=== PATIENT | female | born 1980 | race Caucasian/White ===

== ENCOUNTER 2019-05-14 21:11 | Emergency (ER) | END 2019-05-15 01:30 | disposition left against medical advice (07) | LOC: EDBD → ER 21:11 | DX: Z53.21 Procedure and treatment not carried out due to patient leaving prior to being seen by health care provider (principal) ==

== ENCOUNTER 2019-07-10 20:47 | Emergency (ER) | payer MEDICAID ==
[2019-07-10 21:17] VITALS: BP 91/58
[2019-07-10] MEDS ORDERED: ACETAMINOPHEN 325 MG TABLET PO ONE (21:57)
--- NOTE | 2019-07-10 22:00 | ER Document Report ---
ED Medical Screen (RME) - General Chief Complaint: Near Syncope Stated Complaint: POSSIBLE SYNCOPE Time Seen by Provider: 07/10/19 21:51 Notes: She is a 39-year-old female who presents the emergency department after syncopal episode. Patient went to go to make dinner and she felt dizzy and fell to the ground. She has complaints of neck pain. She felt like maybe her sugar was low, but EMS checked her blood sugar and it was 136. She also received half a liter of fluids. Patient also states that she had cold-like symptoms last week. Last menstrual cycle was about 2 weeks ago. Exam: Point tenderness to spinous processes of neck. TRAVEL OUTSIDE OF THE [place] IN LAST 30 DAYS: No Past Medical History - Social History Chew tobacco use (# tins/day): No Frequency of alcohol use: None Physical Exam - Vital signs Vitals: Temp Pulse Resp BP Pulse Ox 97.7 F 60 12 91/58 L 99 07/10/19 21:15 07/10/19 21:15 07/10/19 21:15 07/10/19 21:15 07/10/19 21:15 Course - Vital Signs Vital signs: Temp Pulse Resp BP Pulse Ox 97.7 F 60 12 91/58 L 99 07/10/19 21:15 07/10/19 21:15 07/10/19 21:15 07/10/19 21:15 07/10/19 21:15
[2019-07-10] MEDS ORDERED: MECLIZINE HCL 12.5 MG TABLET PO ONE (22:19)
--- NOTE | 2019-07-11 22:04 | EKG REPORT ---
SEVERITY:- ABNORMAL ECG - SINUS RHYTHM LEFT ATRIAL ABNORMALITY : Confirmed by: Renato Ried MD 11-Jul-2019 22:03:55
== END 2019-07-10 22:55 | disposition left against medical advice (07) ==
LOC: ER 20:47
DX: R55 Syncope and collapse (principal); M54.2 Cervicalgia; Z53.20 Procedure and treatment not carried out because of patient's decision for unspecified reasons
CPT/HCPCS: 93005; 93010; 99281

== ENCOUNTER 2019-07-11 19:42 | Emergency (ER) | payer MEDICAID ==
[2019-07-11] MEDS ORDERED: ASPIRIN 81 MG TABLET, CHEWABLE PO ONE (20:22)
--- NOTE | 2019-07-11 20:24 | ER Document Report ---
ED Medical Screen (RME) - General Chief Complaint: Chest Pain Stated Complaint: CHEST PAIN,NUMBNESS Time Seen by Provider: 07/11/19 20:18 Primary Care Provider: MICHELLE GOMEZ MD [Primary Care Provider] - Follow up as needed Mode of Arrival: Wheelchair Information source: Patient Notes: This 39-year-old female with history of occipital neuralgia, brain tumor pr esents emergency department with complaints of right-sided chest pain that started yesterday. She reports she feels short of breath. She reports she fell and hit her head and possibly passed out yesterday. She was evaluated in this emergency department yesterday also. Denies history of cardiac disease. Patient is very tearful. EKG shows sinus rhythm. She reports this happened to her last month. She reports having to her at least 5 times got last couple years. She reports she takes synthetic morphine for her occipital neuralgia but she has not taken any of that yesterday or today. I have greeted and performed a rapid initial assessment of this patient. A comprehensive ED assessment and evaluation of the patient, analysis of test results and completion of the medical decision making process will be conducted by additional ED providers. Dictation of this chart was performed using voice recognition software; therefore, there may be some unintended grammatical errors. TRAVEL OUTSIDE OF THE [place] IN LAST 30 DAYS: No Physical Exam - Vital signs Vitals: Temp Pulse Resp BP Pulse Ox 97.6 F 74 20 101/66 99 07/11/19 20:03 07/11/19 20:03 07/11/19 20:03 07/11/19 20:03 07/11/19 20:03 Course - Vital Signs Vital signs: Temp Pulse Resp BP Pulse Ox 97.6 F 74 20 101/66 99 07/11/19 20:03 07/11/19 20:03 07/11/19 20:03 07/11/19 20:03 07/11/19 20:03 Doctor's Discharge - Discharge Referrals: MICHELLE GOMEZ MD [Primary Care Provider] - Follow up as needed
[2019-07-11 20:55] LABS: ABSOLUTE BASOPHILS # (AUTO) 0.1 10^3/uL (0.0-0.2); ABSOLUTE EOSINOPHILS # (AUTO) 0.1 10^3/uL (0.0-0.6); ABSOLUTE LYMPHOCYTES (AUTO) 3.7 10^3/uL (0.5-4.7); ABSOLUTE MONOCYTES (AUTO) 0.4 10^3/uL (0.1-1.4); ABSOLUTE NEUT (AUTO) 5.9 10^3/uL (1.7-8.2); BASOPHILS % (AUTO) 0.8 % (0-2); EOSINOPHILS % (AUTO) 0.8 % (0-6); HEMATOCRIT 43.1 % (36.0-47.0); HEMOGLOBIN 15.1 g/dL (12.0-15.5); LYMPHOCYTES % (AUTO) 36.2 % (13-45); MEAN CORPUSCULAR HEMOGLOBIN 31.5 pg (27.0-33.4); MEAN CORPUSCULAR VOLUME 90 fl (80-97); MONOCYTES % (AUTO) 3.9 % (3-13); PLATELET COUNT 210 10^3/uL (150-450); RED BLOOD COUNT 4.78 10^6/uL (3.72-5.28); RED CELL DISTRIBUTION WIDTH 13.1 % (11.5-14.0); SEGMENTED NEUTROPHILS % (AUTO) 58.3 % (42-78); TOTAL CELLS COUNTED % (AUTO) 100 %; WHITE BLOOD COUNT 10.1 10^3/uL (4.0-10.5)
--- NOTE | 2019-07-11 21:07 | RADIOLOGY REPORT (SQ) ---
XR CHEST 2 VIEWS EXAM DATE: 07/11/2019 8:22 PM CDT HISTORY: Chest Pain. COMPARISON: None. FINDINGS: The heart size is within normal limits. No consolidation, pleural effusion, or pneumothorax is seen. No acute bony findings. IMPRESSION: No evidence of acute cardiopulmonary disease.
[2019-07-11 21:14] LABS: ALBUMIN 3.3 g/dL (3.5-5.0); ALKALINE PHOSPHATASE 58 U/L (38-126); ASPARTATE AMINO TRANSFERASE 25 U/L (14-36); BILIRUBIN,TOTAL 0.6 mg/dL (0.2-1.3); BLOOD UREA NITROGEN 11 mg/dL (7-20); CALCIUM 9.2 mg/dL (8.4-10.2); CARBON DIOXIDE 24 mmol/L (22-30); CREATINE KINASE 47 U/L (30-135); GLUCOSE 104 mg/dL (75-110); POTASSIUM 3.5 mmol/L (3.6-5.0); TOTAL PROTEIN 5.6 g/dL (6.3-8.2)
[2019-07-11 21:20] LABS: ANION GAP 5 (5-19); CHLORIDE 106 mmol/L (98-107)
[2019-07-11 21:25] LABS: APPEARANCE,URINE SLIGHTLY-CLOUDY; BILIRUBIN,URINE NEGATIVE (NEGATIVE); COLOR,URINE YELLOW; GLUCOSE, URINE NEGATIVE (NEGATIVE); KETONES,URINE NEGATIVE (NEGATIVE); LEUKOCYTE ESTERASE,URINE NEGATIVE (NEGATIVE); NITRITE,URINE NEGATIVE (NEGATIVE); PROTEIN,URINE NEGATIVE (NEGATIVE); URINE SPECIFIC GRAVITY 1.013
[2019-07-11 21:26] LABS: TROPONIN I < 0.012 ng/mL
[2019-07-11 21:39] LABS: URINE AMPHETAMINES SCREEN NEGATIVE; URINE BARBITURATES SCREEN NEGATIVE; URINE BENZODIAZEPINES SCREEN NEGATIVE; URINE COCAINE SCREEN NEGATIVE; URINE MARIJUANA (THC) SCREEN UNCONFIRMED POSITIVE; URINE METHADONE SCREEN NEGATIVE; URINE PHENCYCLIDINE SCREEN NEGATIVE
[2019-07-12] MEDS ORDERED: FENTANYL CITRATE INJ/PF 100 MCG/2 ML AMPUL IV ONE (00:06)
[2019-07-12] MEDS ORDERED: NORMAL SALINE 1000 ML 1,000 ML IV ONE (00:07)
[2019-07-12] MEDS ORDERED: ONDANSETRON HCL INJ/PF 4 MG/2 ML SDV IV ONE (00:07)
--- NOTE | 2019-07-12 00:14 | ER Document Report ---
ED General - General Chief Complaint: Chest Pain Stated Complaint: CHEST PAIN,NUMBNESS Time Seen by Provider: 07/11/19 20:18 Primary Care Provider: MICHELLE GOMEZ MD [Primary Care Provider] - Follow up as needed Mode of Arrival: Wheelchair Notes: Patient is a 39-year-old female that comes to the emergency department for chief complaint of right-sided chest pain, headache, swelling at the back of her head, neck pain, and 2 episodes of vomiting. She states that she either passed out an d hit her head last night where she fell and hit her head and subsequently passed out. She is unsure. This happened in the bathroom yesterday, she came by EMS but then left because she reportedly had a family emergency. She states symptoms have not improved or resolved. She denies difficulty breathing, fever, focal numbness or weakness. Past medical history includes occipital neuralgia, pituitary adenoma treated with bromocriptine and subsequently cleared by MRI, and she was on chronic pain medication with oral morphine up until 2 weeks ago. She denies recreational drugs, smoking, she does drink alcohol occasionally but not in the past 48 hours reportedly. TRAVEL OUTSIDE OF THE [place] IN LAST 30 DAYS: No - Related Data Allergies/Adverse Reactions: amoxicillin [From Augmentin] Allergy (Verified 07/11/19 20:25) cefixime [From Suprax] Allergy (Verified 07/11/19 20:25) clavulanic acid [From Augmentin] Allergy (Verified 07/11/19 20:25) meperidine [From Demerol] Allergy (Verified 07/11/19 20:25) metoclopramide [From Reglan] Allergy (Verified 07/11/19 20:25) Past Medical History - General Information source: Patient - Social History Smoking Status: Current Every Day Smoker Frequency of alcohol use: None Drug Abuse: None Lives with: Family Family History: Reviewed & Not Pertinent Patient has suicidal ideation: No Patient has homicidal ideation: No Neurological Medical History: Reports: Hx Migraine Review of Systems - Review of Systems Constitutional: No symptoms reported EENT: No symptoms reported Cardiovascular: See HPI Respiratory: No symptoms reported Gastrointestinal: No symptoms reported Genitourinary: No symptoms reported Female Genitourinary: No symptoms reported Musculoskeletal: See HPI Skin: No symptoms reported Hematologic/Lymphatic: No symptoms reported Neurological/Psychological: See HPI Physical Exam - Vital signs Vitals: Temp Pulse Resp BP Pulse Ox 97.6 F 74 20 101/66 99 07/11/19 20:03 07/11/19 20:03 07/11/19 20:03 07/11/19 20:03 07/11/19 20:03 - Notes Notes: GENERAL: Alert, interacts well. Covering her eyes and loudly talking HEAD: Normocephalic, small questionable hematoma over the posterior occipital area. No open wounds. EYES: Pupils equal, round, and reactive to light. Extraocular movements intact. ENT: Oral mucosa moist, tongue midline. Oropharynx unremarkable. Airway patent. Nares patent, no nasal septal hematoma, TM's intact. NECK: Full range of motion. Supple. Trachea midline. LUNGS: Clear to auscultation bilaterally, no wheezes, rales, or rhonchi. No respiratory distress. Tender generally over the right side of the chest without signs of trauma, no hematoma or erythema. HEART: Regular rate and rhythm. No murmur ABDOMEN: Soft, non-tender. Non-distended. Bowel sounds present in all 4 quadrants. GENITOURINARY: Deferred EXTREMITIES: Moves all 4 extremities spontaneously. No edema, normal radial and dorsalis pedis pulses bilaterally. No cyanosis. BACK: no cervical, thoracic, lumbar midline tenderness. No saddle anesthesia, normal distal neurovascular exam. Moves all extremities in full range of motion. NEUROLOGICAL: Alert and oriented x3. Normal speech. Cranial nerves II through XII grossly intact. PSYCH: Irritable SKIN: Warm, dry, normal turgor. No rashes or lesions noted. Course - Re-evaluation Re-evalutation: Patient has right-sided chest wall tenderness on exam. Patient is covering her eyes and telling me she has a headache, she had does have what appears to be a small lump on the back of her head. Because of her reported head injury and vomiting CAT scan of the head will be performed along with CAT scan of the neck because of reported neck pain with the injury. She has no focal deficits on exam. She did not appear to be in distress. Vital signs show mildly low blood pressure but are otherwise unremarkable. Patient was given pain medication. CT of the head and neck unremarkable. CBC, chemistry, troponin unremarkable, negative test. Urine drug screen positive for marijuana. On reevaluation patient is asking for more pain medication. I discussed the results. Patient became extremely frustrated, she states that she has been to "tons of neurology appointments" and "nobody can figure out what is going on", she states that somebody needs to tell her what is going on. I explained that because of her reported syncopal episode I recommended cardiology follow-up and I will give her referral, patient became angry, states she is leaving, states that she has nothing else that she wants from here. I did offer a dose of pain medication but patient declined stating that she already has her oral morphine. Patient was able to take off all of her monitoring and dress rapidly without any difficulty. - Vital Signs Vital signs: Temp Pulse Resp BP Pulse Ox 97.6 F 74 18 95/66 L 100 07/11/19 20:03 07/11/19 20:03 07/12/19 02:01 07/12/19 02:00 07/12/19 02:01 - Laboratory Result Diagrams: 07/11/19 20:40 07/11/19 20:40 Laboratory results interpreted by me: 07/11/19 07/11/19 20:40 21:00 Sodium 134.5 L Potassium 3.5 L Total Protein 5.6 L Albumin 3.3 L Urine Blood SMALL H Urine Urobilinogen 2.0 H Discharge - Discharge Clinical Impression: Right-sided chest pain, Neck pain Head injury Qualifiers: Encounter type: initial encounter Qualified Code(s): S09.90XA - Unspecified injury of head, initial encounter Condition: Stable Disposition: HOME, SELF-CARE Additional Instructions: The imaging of your head and neck along with your chest do not show any injuries or concerning findings. Your work-up does not show any specific concerning abnormality at this time. I recommend cardiology follow-up because of your sy ncopal episode, see referral. Follow-up with your neurologist as well because of your headaches. Return for any concerning symptoms including passing out again, vomiting, fever, or any other concerning symptoms. Referrals: MICHELLE GOMEZ MD [Primary Care Provider] - Follow up as needed
--- NOTE | 2019-07-12 01:30 | RADIOLOGY REPORT (SQ) ---
EXAM DESCRIPTION: CT CERVICAL SPINE WITHOUT IV CONTRAST COMPLETED DATE/TME: 07/12/2019 00:07 CLINICAL HISTORY: 39 years, Female, head injury, neck pain COMPARISON: None. TECHNIQUE: Axial CT images of the cervical spine were obtained without contrast. Sagittal and coronal reformats were performed. DLP 413 Images stored on PACS. All CT scanners at this facility use dose modulation, iterative reconstruction, and/or weight based dosing when appropriate to reduce radiation dose to as low as reasonably achievable (ALARA). [facility]: Dose Right [facility]: CareDose [facility]: Dose Right [facility]: Teradose 4D [facility]: [employer] LIMITATIONS: None. FINDINGS: The alignment of the cervical spine is satisfactory. There is no acute fracture or subluxation. The vertebral heights are maintained. The odontoid process is intact. The craniocervical junction is intact. The prevertebral soft tissues are normal. There is disc space narrowing with anterior osteophytes noted at C4-C5. No significant spinal canal stenosis or neural foraminal narrowing at any level. The visualized lung apices are clear. IMPRESSION: No acute fracture or subluxation involving the cervical spine. TECHNICAL DOCUMENTATION: Quality ID # 436: Final reports with documentation of one or more dose reduction techniques (e.g., Automated exposure control, adjustment of the mA and/or kV according to patient size, use of iterative reconstruction technique) copyright 2011 [employer]- All Rights Reserved
--- NOTE | 2019-07-12 01:31 | RADIOLOGY REPORT (SQ) ---
EXAM DESCRIPTION: CT HEAD WITHOUT IV CONTRAST COMPLETED DATE/TME: 07/12/2019 00:07 CLINICAL HISTORY: 39 years, Female, head injury, vomiting COMPARISON: None. TECHNIQUE: Axial CT images of the ring were obtained without contrast. Sagittal and coronal reformats were performed. ON LICENSE OF [facility] 1017 Images stored on PACS. All CT scanners at this facility use dose modulation, iterative reconstruction, and/or weight based dosing when appropriate to reduce radiation dose to as low as reasonably achievable (ALARA). [facility]: Dose Right [facility]: CareDose [facility]: Dose Right [facility]: Teradose 4D [facility]: [employer] LIMITATIONS: None. FINDINGS: There is no acute cortical infarct, hemorrhage, mass, edema, hydrocephalus, or extra-axial fluid collection. The villarreal-white matter differentiation is preserved. There is mucosal thickening of the maxillary sinuses. The mastoid air cells are clear. No acute fracture is identified. IMPRESSION: No acute intracranial abnormality. TECHNICAL DOCUMENTATION: Quality ID # 436: Final reports with documentation of one or more dose reduction techniques (e.g., Automated exposure control, adjustment of the mA and/or kV according to patient size, use of iterative reconstruction technique) copyright 2010 [employer]- All Rights Reserved
[2019-07-12 02:14] VITALS: BP 95/66
[2019-07-12] MEDS ORDERED: OXYCODONE-ACETAMINOPHEN 5-325 MG TABLET PO ONE (02:29)
== END 2019-07-12 03:07 | disposition home or self-care (01) ==
LOC: ER 19:42
DX: R07.9 Chest pain, unspecified (principal); S09.90XA Unspecified injury of head, initial encounter; R51 Headache; M54.2 Cervicalgia; X58.XXXA Exposure to other specified factors, initial encounter; R11.10 Vomiting, unspecified; I95.9 Hypotension, unspecified; R55 Syncope and collapse; F17.200 Nicotine dependence, unspecified, uncomplicated; Z88.0 Allergy status to penicillin; Z88.5 Allergy status to narcotic agent; Z88.8 Allergy status to other drugs, medicaments and biological substances; Z88.1 Allergy status to other antibiotic agents
CPT/HCPCS: 99285; 96361; 96374; 96375; 36415; 82553; 82550; 85025; 81025; 80053; 81001; 84484; 80307; 71046; 70450; 72125; J3010; J2405; J7030

== ENCOUNTER 2020-06-27 18:13 | Emergency (ER) | payer MEDICAID ==
--- NOTE | 2020-06-27 18:56 | ER Document Report ---
ED Medical Screen (RME) - General Chief Complaint: Chest Pain Stated Complaint: CHEST PAIN Time Seen by Provider: 06/27/20 18:46 Primary Care Provider: MICHELLE GOMEZ MD [Primary Care Provider] - Follow up as needed TRAVEL OUTSIDE OF THE [place] IN LAST 30 DAYS: No - HPI Notes: 06/27/20 18:55 40-year-old female to the emergency department with complaints of midsternal and left-sided chest pain that radiates through to her back that began this morning and has persisted. She admits to associated shortness of breath and increased pain with big deep breath. She states that she feels extremely fatigued, "like I just ran a marathon". She states that she has had nausea but no vomiting. She admits to some slight diaphoresis. She states also that her right index finger has been swollen and painful for over 1 month. 1 month ago she got bit by her son's dog when breaking up a dog fight with her dog. She states she had 3 puncture wounds and she was never seen for them. She states that she never was on antibiotics. Denies any fevers or chills. Denies any cough, abdominal pain. I performed a brief medical screening exam on the patient determined that the patient needs further evaluation and management by main side provider. I have placed initial orders to help expedite care. - Related Data Allergies/Adverse Reactions: amoxicillin trihydrate [From Augmentin] Allergy (Severe, Verified 08/02/19 13:32) Hives meperidine HCl [From Demerol] Allergy (Severe, Verified 08/02/19 13:32) Hallucinations Potassium Clavulanate * [From Augmentin] Allergy (Severe, Verified 08/02/19 13:32) Hives amoxicillin [From Augmentin] Allergy (Verified 08/02/19 13:32) cefixime [From Suprax] Allergy (Verified 08/02/19 13:32) clavulanic acid [From Augmentin] Allergy (Verified 08/02/19 13:32) meperidine [From Demerol] Allergy (Verified 08/02/19 13:32) metoclopramide [From Reglan] Allergy (Verified 08/02/19 13:32) Past Medical History - Past Medical History Cardiac Medical History: Denies: Hx Coronary Artery Disease, Hx Heart Attack, Hx Hypertension Pulmonary Medical History: Reports: Hx Asthma - inhalers Denies: Hx Bronchitis, Hx COPD, Hx Pneumonia Neurological Medical History: Reports: Hx Migraine. Denies: Hx Cerebrovascular Accident, Hx Seizures Renal/ Medical History: Reports: Hx Ovarian Cysts - PCO S. Denies: Hx Peritoneal Dialysis GI Medical History: Reports: Hx Hiatal Hernia Musculoskeltal Medical History: Reports Hx Arthritis, Reports Hx Fibromyalgia Past Surgical History: Reports: Hx Breast Surgery, Hx Cholecystectomy, Hx Genitourinary Surgery - d&c, Hx Orthopedic Surgery, Hx Pituitary Surgery - Immunizations Hx Diphtheria, Pertussis, Tetanus Vaccination: Yes Physical Exam - Vital signs Vitals: Temp Pulse Resp BP Pulse Ox 97.9 F 61 18 106/70 98 06/27/20 18:26 06/27/20 18:26 06/27/20 18:26 06/27/20 18:26 06/27/20 18:26 Course - Vital Signs Vital signs: Temp Pulse Resp BP Pulse Ox 97.9 F 61 18 106/70 98 06/27/20 18:26 06/27/20 18:26 06/27/20 18:26 06/27/20 18:26 06/27/20 18:26 Doctor's Discharge - Discharge Referrals: MICHELLE GOMEZ MD [Primary Care Provider] - Follow up as needed
[2020-06-27 19:25] LABS: ABSOLUTE BASOPHILS # (AUTO) 0.1 10^3/uL (0.0-0.2); ABSOLUTE EOSINOPHILS # (AUTO) 0.2 10^3/uL (0.0-0.6); ABSOLUTE LYMPHOCYTES (AUTO) 3.8 10^3/uL (0.5-4.7); ABSOLUTE MONOCYTES (AUTO) 0.4 10^3/uL (0.1-1.4); BASOPHILS % (AUTO) 0.8 % (0-2); EOSINOPHILS % (AUTO) 1.6 % (0-6); HEMATOCRIT 40.8 % (36.0-47.0); HEMOGLOBIN 14.2 g/dL (12.0-15.5); LYMPHOCYTES % (AUTO) 36.2 % (13-45); MEAN CORPUSCULAR HEMOGLOBIN 32.7 pg (27.0-33.4); MEAN CORPUSCULAR HGB CONC 34.8 g/dL (32.0-36.0); MEAN CORPUSCULAR VOLUME 94 fl (80-97); MONOCYTES % (AUTO) 3.7 % (3-13); PLATELET COUNT 209 10^3/uL (150-450); RED BLOOD COUNT 4.34 10^6/uL (3.72-5.28); RED CELL DISTRIBUTION WIDTH 13.7 % (11.5-14.0); SEGMENTED NEUTROPHILS % (AUTO) 57.7 % (42-78); TOTAL CELLS COUNTED % (AUTO) 100 %; WHITE BLOOD COUNT 10.5 10^3/uL (4.0-10.5)
[2020-06-27 19:36] LABS: ALBUMIN 3.4 g/dL (3.5-5.0); ALKALINE PHOSPHATASE 73 U/L (38-126); ANION GAP 6 (5-19); ASPARTATE AMINO TRANSFERASE 26 U/L (14-36); BILIRUBIN,DIRECT 0.3 mg/dL (0.0-0.4); BILIRUBIN,TOTAL 0.5 mg/dL (0.2-1.3); BLOOD UREA NITROGEN 13 mg/dL (7-20); CARBON DIOXIDE 26 mmol/L (22-30); CHLORIDE 106 mmol/L (98-107); GLUCOSE 97 mg/dL (75-110); POTASSIUM 4.4 mmol/L (3.6-5.0); TOTAL PROTEIN 5.8 g/dL (6.3-8.2)
--- NOTE | 2020-06-27 19:38 | RADIOLOGY REPORT (SQ) ---
EXAM DESCRIPTION: HAND RIGHT 3 VIEWS IMAGES COMPLETED DATE/TIME: 06/27/2020 7:18 pm REASON FOR STUDY: dog bite, finger pain and swelling one month ago COMPARISON: 11/29/2016 EXAM PARAMETERS: NUMBER OF VIEWS: Three views. TECHNIQUE: AP, lateral and oblique radiographic images acquired of the right hand. LIMITATIONS: None. FINDINGS: MINERALIZATION: Normal. BONES: No acute fracture or dislocation. Postprocedural changes noted in the 1st metacarpal and prox imal phalanx right thumb. . JOINTS: No effusion. SOFT TISSUES: No significant soft tissue swelling. No radiopaque foreign body. OTHER: No other significant finding. IMPRESSION: NO FRACTURE.No radiopaque foreign body. TECHNICAL DOCUMENTATION: JOB ID: [id number] [place]-72 2010 [employer]- All Rights Reserved Reading location - IP/workstation name: [email or web address]
--- NOTE | 2020-06-27 19:39 | RADIOLOGY REPORT (SQ) ---
EXAM DESCRIPTION: CHEST 2 VIEWS IMAGES COMPLETED DATE/TIME: 06/27/2020 7:18 pm REASON FOR STUDY: chest pain, SOB, fatigue COMPARISON: 07/11/2019 TECHNIQUE: Frontal and lateral radiographic views of the chest acquired. NUMBER OF VIEWS: Two view. LIMITATIONS: None. FINDINGS: LUNGS AND PLEURA: No pneumothorax. No consolidation or pleural effusion. MEDIASTINUM AND HILAR STRUCTURES: Stable. HEART AND VASCULAR STRUCTURES: Stable. BONES: No acute findings. HARDWARE: None in the chest. OTHER: No other significant finding. IMPRESSION: NO ACUTE FINDINGS. TECHNICAL DOCUMENTATION: JOB ID: [id number] [place]-72 2010 [employer]- All Rights Reserved Reading location - IP/workstation name: [email or web address]
[2020-06-27] MEDS ORDERED: CLINDAMYCIN HCL 150 MG CAPSULE PO ONE (20:26)
[2020-06-27] MEDS ORDERED: ALPRAZOLAM 0.25 MG TABLET PO ONE (20:27)
--- NOTE | 2020-06-27 20:36 | ER Document Report ---
ED General - General Chief Complaint: Chest Pain Stated Complaint: CHEST PAIN Time Seen by Provider: 06/27/20 18:46 Primary Care Provider: MICHELLE GOMEZ MD [Primary Care Provider] - Follow up as needed TRAVEL OUTSIDE OF THE [place] IN LAST 30 DAYS: No - HPI Context: This is a 40-year-old female who presents to the emergency department complaining of chest pain. Patient states that she is had this chest pain for approximately 3 to 4 days. Patient states that she is very anxious and is going through a great deal of stress right now. Patient states she was evicted from her home this past week after her left her. Patient states she usually takes Klonopin which she does not have with her for her anxiety symptoms. Patient describes the pain as sharp and is worse with deep breaths. Patient is also complaining of fatigue, stating that she feels like she just "ran a marathon." Patient is also complaining of some diaphoresis and nausea. Patient denies fever and chills patient denies loss of sense of smell or sense of taste. Patient denies history of COVID infection or known exposure to COVID positive persons or persons under investigation for COVID infection. In addition she states that her right index finger has been intermittently swollen and painful for over a month since she was bitten by her dog while trying to separate her dog from her son's dog while they were fighting. Patient states she never saw no anyone for initial treatment of the bite wound and states that she is kept the puncture wounds clean and dry. Patient states for the past 2 days she is noticed increased pain and swelling at the base of her right index finger. Patient states the pain is worse with movement. Patient thinks the extreme anxiety is the cause of her chest pain and the prior dog bite is associated with her right finger pain and swelling. Patient states that nothing alleviates her symptoms and any additional stress exacerbates her symptoms. Associated symptoms: Other - See HPI Exacerbated by: Other - See HPI Relieved by: Other - See HPI - Related Data Allergies/Adverse Reactions: amoxicillin trihydrate [From Augmentin] Allergy (Severe, Verified 08/02/19 13:32) Hives meperidine HCl [From Demerol] Allergy (Severe, Verified 08/02/19 13:32) Hallucinations Potassium Clavulanate * [From Augmentin] Allergy (Severe, Verified 08/02/19 13:32) Hives amoxicillin [From Augmentin] Allergy (Verified 08/02/19 13:32) cefixime [From Suprax] Allergy (Verified 08/02/19 13:32) clavulanic acid [From Augmentin] Allergy (Verified 08/02/19 13:32) meperidine [From Demerol] Allergy (Verified 08/02/19 13:32) metoclopramide [From Reglan] Allergy (Verified 08/02/19 13:32) Past Medical History - General Information source: Patient - Social History Smoking Status: Current Every Day Smoker Drug Abuse: None Family History: Reviewed & Not Pertinent - Past Medical History Cardiac Medical History: Denies: Hx Coronary Artery Disease, Hx Heart Attack, Hx Hypertension Pulmonary Medical History: Reports: Hx Asthma - inhalers Denies: Hx Bronchitis, Hx COPD, Hx Pneumonia Neurological Medical History: Reports: Hx Migraine. Denies: Hx Cerebrovascular Accident, Hx Seizures Renal/ Medical History: Reports: Hx Ovarian Cysts - PCO S. Denies: Hx Peritoneal Dialysis GI Medical History: Reports: Hx Hiatal Hernia Musculoskeletal Medical History: Reports Hx Arthritis, Reports Hx Fibromyalgia Past Surgical History: Reports: Hx Breast Surgery, Hx Cholecystectomy, Hx Genitourinary Surgery - d&c, Hx Orthopedic Surgery, Hx Pituitary Surgery - Immunizations Hx Diphtheria, Pertussis, Tetanus Vaccination: Yes Review of Systems - Review of Systems Constitutional: Weakness EENT: No symptoms reported Cardiovascular: Chest pain Respiratory: No symptoms reported Gastrointestinal: Nausea Genitourinary: No symptoms reported Female Genitourinary: No symptoms reported Musculoskeletal: Other - Hand pain Skin: Other - Finger swelling Hematologic/Lymphatic: No symptoms reported Neurological/Psychological: Anxiety -: Yes All other systems reviewed and negative Physical Exam - Vital signs Vitals: Temp Pulse Resp BP Pulse Ox 97.9 F 61 18 106/70 98 06/27/20 18:26 06/27/20 18:26 06/27/20 18:26 06/27/20 18:06/27/20 18:26 - Notes Notes: CONSTITUTIONAL Upon entry into the room, patient is in the middle of a FaceTime conversation with someone. Patient appears distracted by technology and this MD had to wait while she finished her FaceTime conversation with the person on her mobile device. [Vital signs reviewed, Patient appears comfortable, Alert and oriented X 3, Normal stature.] HEAD [Atraumatic, Normocephalic.] EYES [Eyes are normal to inspection, No discharge from eyes, Extraocular muscles intact, Sclera are normal, Conjunctiva are normal.] ENT [Ears normal to inspection, Nose examination normal, Posterior pharynx normal, Mouth normal to inspection.] NECK [Normal ROM, No jugular venous distention, No meningeal signs, no carotid bruit.] RESPIRATORY CHEST [Chest is nontender, Breath sounds normal, No respiratory distress.] CARDIOVASCULAR [RRR, No murmurs, Normal S1 S2, No rub, No gallop.] ABDOMEN [Abdomen is nontender, No pulsatile masses, No other masses, Bowel sounds normal, No distension, No peritoneal signs, No hernias.] BACK [There is no CVA Tenderness, There is no tenderness to palpation, Normal inspection.] UPPER EXTREMITY [ No cyanosis, No clubbing, No edema, 2+ radial pulses. Right index finger appears slightly edematous in between the MCP and PIP joint there is a well- healed puncture wound present in this area the compartment is soft. The patient is able to fully extend and flex the index finger with minimal difficulty. The finger does not have any type of appearance similar to that of a sausage digit. There is no pointing, fluctuation, or induration appreciated. Cap refill is less than 2 seconds.] LOWER EXTREMITY [Inspection normal, No cyanosis, No clubbing, No edema, No calf tenderness, 2+ femoral pulses.] NEURO [No focal motor deficits, No focal sensory deficits, Speech normal.] SKIN [Skin is warm, Skin is dry, Skin is normal color.] LYMPHATIC [No adenopathy in neck.] PSYCHIATRIC [Anxious affect. ] Course - Re-evaluation Re-evalutation: 06/27/20 21:03 Results of ED MSE discussed with patient. All questions were answered prior to discharge. Emergency signs and symptoms, reasons to return to the emergency department discussed with patient. - Vital Signs Vital signs: Temp Pulse Resp BP Pulse Ox 98.4 F 65 16 105/68 100 06/27/20 20:50 06/27/20 20:50 06/27/20 20:50 06/27/20 20:50 06/27/20 20:50 - Laboratory Result Diagrams: 06/27/20 19:02 06/27/20 19:02 Laboratory results interpreted by me: 06/27/20 19:02 Total Protein 5.8 L Albumin 3.4 L - Diagnostic Test Radiology reviewed: Reports reviewed - EKG Interpretation by Me Additional EKG results interpreted by me: 06/27/20 21:03 EKG obtained on 06/27/2020 at 1822 hrs. was interpreted by this MD. Findings: Normal sinus rhythm, rate 60, normal axis, MA intervals appear to be within normal limits, P waves preceding QRS complexes, QR S complexes appear narrow, P waves preceding QRS complexes, there are no obvious patterns of ST segment elevation or depression present to suggest acute myocardial ischemia or infarction. Impression: Normal sinus rhythm with nonspecific ST segments. Discharge - Discharge Clinical Impression: Anxiety as acute reaction to exceptional stress Chest pain Qualifiers: Chest pain type: unspecified Qualified Code(s): R07.9 - Chest pain, unspecified Dog bite Qualifiers: Encounter type: initial encounter Qualified Code(s): W54.0XXA - Bitten by dog, initial encounter Condition: Stable Disposition: HOME, SELF-CARE Instructions: Chest Pain of Unclear Cause ([facility]) Additional Instructions: Animal Bites Animal bites are often heavily contaminated with bacteria. In spite of thorough cleansing and proper treatment, these wounds frequently become infected. Bite wounds of the hands are especially prone to complications. Bites are dressed, if possible. Large wounds may require suturing after internal cleansing. Because of infection risk, some large wounds must remain unstitched. Your doctor is trained to advise you on the best treatment for your bite. Call the doctor at once if the wound becomes red, swollen, warm, increasingly painful, or if it begins to drain. Danger signs also include red streaks up the involved extremity, swollen glands in the groin or under the arm, or fever and chills. The risk of rabies from domestic animals is very low. Bats, sick animals, and wild animals may expose you to rabies. The physician, or the health department, will inform you if you will need to receive the rabies vaccine. Anxiety The physician feels that some of your health problems are being caused by anxiety. Anxiety affects your health in many ways. Anxiety alone can cause palpitations, sweats, chest pains, abdominal pains, shortness of breath, and headaches. It contributes to ulcer disease, high blood pressure, irritable bowel syndrome, and has been shown to cause flare-ups of many other diseases. Anxiety is not a simple disorder to treat. If the anxiety is due to recent life stresses, you may simply need time to "work through" the changes. If the anxiety is due to an underlying unhappiness with yourself or due to psychiatric disturbance, professional help will be needed. Your physician can refer you for further help if needed. Anti-anxiety medication is occasionally given if the stress is acute or if you are having trouble sleeping. Chronic or frequent use of these medications is not a good idea because the body becomes reliant on it, preventing you from dealing with life's normal stresses. Return to the Emergency Department without delay if any worse. HOME CARE INSTRUCTIONS & INFORMATION: Thank you for choosing us for your medical needs. We hope you're satisfied with the care you received. After you leave, you must properly care for your problem and, at the same time, observe its progress. Any condition can change. Some illnesses can change rapidly over hours or days. If your condition worsens, return to the Emergency Department or see your physician promptly. ABOUT YOUR X-RAYS AND EKG'S: If you had an EKG or X-rays taken, they have been read by the Emergency Physician. The X-rays and EKG's will also be read by a Radiologist or Product Safety Consultant within 24 hours. If discrepancies are noted, you will be notified by telephone. Please be certain the ED has a correct telephone number & address where you can be reached. Also, realize that some fractures or abnormalities do not show up on initial X-rays. If your symptoms continue, see your physician. ABOUT YOUR LABORATORY TEST: If you had laboratory tests, the results have been reviewed by the Emergency Physician. Some test results (for example cultures) may not be available for several days. You will be contacted if any test result shows you need additional treatment. Please be certain the ED has a correct telephone number and address where you can be reached. ABOUT YOUR MEDICATIONS: You will receive instructions on how to take your medicine on the prescription label you receive. Additional information may be provided by the Pharmacy. If you have questions afterwards, call the ED for clarification or further instructions. Some prescribed medications may cause drowsiness. Do not perform tasks such as driving a car or operating machinery without consulting your Pharmacist. If you feel you need a refill of pain medication, your condition will need re-evaluation. Please do not call for a refill of any medication. ABOUT YOUR SIGNATURE: Signature of this document acknowledges to followin. Understanding that you received emergency treatment and that you may be released before al medical problems are known or treated. Please be certain the ED has a correct phone number & address where you can be reached. 2. Acknowledgement that you will arrange for follow-up care as recommended. 3. Authorization for the Emergency Physician to provide information to your follow-up Physician in order to maximize your care. AT ANY TIME, IF YOUR SYMPTOMS CHANGE SIGNIFICANTLY OR WORSEN OR YOU DEVELOP NEW SYMPTOMS, RETURN TO THE EMERGENCY DEPARTMENT IMMEDIATELY FOR RE-EVALUATION. OUR GOAL IS TO PROVIDE EXCELLENT MEDICAL CARE! WE HOPE THAT WE HAVE MET YOUR EXPECTATIONS DURING YOUR EMERGENCY DEPARTMENT VISIT AND THAT YOU FEEL YOU HAVE RECEIVED EXCELLENT CARE! Prescriptions: Alprazolam [Xanax 0.25 mg Tablet] 0.25 mg PO Q8HP PRN #6 tablet PRN Reason: Anxiety Clindamycin HCl [Cleocin 150 mg Capsule] 450 mg PO TID 7 Days #63 capsule Referrals: MICHELLE GOMEZ MD [Primary Care Provider] - Follow up as needed
[2020-06-27 20:55] VITALS: BP 105/68
--- NOTE | 2020-06-27 21:49 | EKG REPORT ---
SEVERITY:- ABNORMAL ECG - SINUS RHYTHM LEFT ATRIAL ABNORMALITY : Confirmed by: Maribell Savage MD 27-Jun-2020 21:48:13
== END 2020-06-27 20:50 | disposition home or self-care (01) ==
LOC: ER 18:13
DX: F41.1 Generalized anxiety disorder (principal); F43.0 Acute stress reaction; R07.9 Chest pain, unspecified; W54.0XXA Bitten by dog, initial encounter; F17.200 Nicotine dependence, unspecified, uncomplicated
CPT/HCPCS: 93005; 99285; 36415; 85025; 80053; 84484; 71046; 73130; 93010; J3490 ×2